=== PATIENT | female | born 1965 | race Two or more races ===

== ENCOUNTER 2018-12-15 12:57 | Emergency (ER) | payer MEDICAID, OTHER ==
[~2018-12-15] VITALS: Ht 154.9 cm; Wt 70.3 kg
[2018-12-15 15:35] VITALS: BP 152/82
== END 2018-12-15 15:40 | disposition home or self-care (01) ==
LOC: ER 13:04
DX: J40 Bronchitis, not specified as acute or chronic (principal)

== ENCOUNTER 2022-01-01 11:07 | Inpatient (IN) | payer MEDICAID ==
[~2022-01-01] VITALS: Ht 154.9 cm; Wt 74.4 kg
[2022-01-01] MEDS ORDERED: ONDANSETRON HCL 4 MG/2 ML VIAL IV ONE (11:30)
[2022-01-01] MEDS ORDERED: SODIUM CHLORIDE 0.9% 1,000 ML IVB ONE (11:30)
[2022-01-01 12:53] LABS: Basophils # (auto) 0 10 ^3/uL (0-0.2); Basophils % (auto) 0.3 % (0.0-2.0); Eosinophils # (auto) 0.1 10 ^3/uL (0-0.8); Eosinophils % (auto) 0.8 % (0.0-7.0); Hematocrit 46.1 % (36.0-46.0); Lymphocytes % (auto) 7.1 % (10.0-50.0); Mean Corpuscular Hemoglobin 31.9 pg (28.0-32.0); Mean Corpuscular Hgb Conc. 34.7 g/dL (32.0-36.0); Monocytes # (auto) 0.6 10 ^3/uL (0-1.3); Monocytes % (auto) 3.9 % (0.0-12.0); Neutrophils # (auto) 12.6 10 ^3/uL (1.6-8.6); Neutrophils % (auto) 87.9 % (37.0-80.0); Red Blood Cells 5.01 10^6/uL (4.0-5.20); Red Cell Distribution Width 13.1 % (11.8-14.3); White Blood Cell 14.3 10^3/uL (4.4-10.8)
[2022-01-01 13:01] LABS: Albumin 4.4 g/dL (3.4-5.0); Calcium 9.8 mg/dL (8.5-10.1); Potassium 4.3 mmol/L (3.5-5.1)
[2022-01-01 13:08] LABS: Bilirubin, Total 0.8 mg/dL (0.2-1.0); Total Protein 8.3 g/dL (6.4-8.2)
[2022-01-01 15:46] LABS: BUN/Creatinine Ratio 12.9
[2022-01-01] MEDS ORDERED: MORPHINE SULFATE INJECTION 2 MG/ML SYRG IV PRN ×2 (16:15)
[2022-01-01] MEDS ORDERED: DEXTROSE (50%) 50ML SYRG IV PRN (16:15)
[2022-01-01] MEDS ORDERED: NITROGLYCERIN 0.4 MG SL TAB SL PRN (16:15)
[2022-01-01 18:50] LABS: Urine Bacteria NONE SEEN /hpf (None Seen); Urine Blood Negative /uL (Negative); Urine Specific Gravity 1.019 (1.001-1.035); Urine WBC 1 /hpf (0 - 5)
[2022-01-01] MEDS: ACCU-CHEK COMFORT CURVE STRIP VI SCH ×2 (22:55→22:59)
[2022-01-01] MEDS: InsuLIN REG 1unit/0.01ml Soln (100units/ml) SC SCH ×2 (22:56→22:59)
[2022-01-01] MEDS ORDERED: MORPHINE SULFATE 4 MG/ML SYR/VIAL ONE (23:04)
[2022-01-02] VITALS (7 sets, daily range): BP systolic 112–139; BP diastolic 61–77
[2022-01-02 01:58] LABS: INR 1.16 (0.9-1.15); Partial Thromboplastin Time 25.3 sec (23.6-33.0)
[2022-01-02 02:18] LABS: Magnesium 2.2 mg/dL (1.6-2.6)
[2022-01-02] MEDS ORDERED: MULTIPLE VITAMINS W/ MINERALS TAB PO ONE (02:30)
[2022-01-02] MEDS ORDERED: hydrALAZINE HCL 20 MG/ML VL IV PRN (02:30)
[2022-01-02] MEDS ORDERED: ONDANSETRON HCL 4 MG/2 ML VIAL IV PRN (02:30)
[2022-01-02] MEDS: LACTATED RINGER'S 1,000 ML IV SCH ×2 (02:30→18:32)
[2022-01-02] MEDS ORDERED: HYDROcodone-ACET 5/325MG TAB PO ONE (02:30)
[2022-01-02] MEDS ORDERED: FAMOTIDINE (10MG/ML) 2ML VL IV ONE (02:30)
[2022-01-02] MEDS ORDERED: MEROPENEM 1GM IVPB 100 ML IV ONE (02:30)
[2022-01-02] MEDS ORDERED: LACTULOSE 20Gm/30ML SOLN PO PRN (02:30)
[2022-01-02] MEDS ORDERED: LORazepam 0.5 MG TAB PO PRN (02:30)
[2022-01-02] MEDS ORDERED: LACTATED RINGER'S 1,000 ML IV ONE (02:30)
[2022-01-02] MEDS ORDERED: DOCUSATE SOD 100 MG CAP PO PRN (02:30)
[2022-01-02] MEDS ORDERED: HYDROcodone-ACET 5/325MG TAB PO PRN (02:30)
[2022-01-02] MEDS ORDERED: FOLIC ACID 1 MG TAB PO ONE (02:30)
[2022-01-02] MEDS ORDERED: MORPHINE SULFATE INJECTION 2 MG/ML SYRG IV PRN (02:30)
[2022-01-02] MEDS ORDERED: IPRATROPIUM BROM 0.5 MG/2.5ML INH SOL NEB ONE (02:30)
[2022-01-02 02:36] LABS: Phosphorus 2.8 mg/dL (2.5-4.90)
[2022-01-02] MEDS ORDERED: METF-370 PO (03:09)
[2022-01-02] MEDS ORDERED: ATOR40TA52 PO (03:09)
[2022-01-02] MEDS ORDERED: GLIP5TAB12 PO (03:09)
[2022-01-02] MEDS ORDERED: IPRATROPIUM BROM 0.5 MG/2.5ML INH SOL NEB SCH (06:00)
[2022-01-02 06:11] LABS: Basophils # (auto) 0 10 ^3/uL (0-0.2); Basophils % (auto) 0.6 % (0.0-2.0); Eosinophils # (auto) 0 10 ^3/uL (0-0.8); Hematocrit 39.8 % (36.0-46.0); Hemoglobin 14.1 g/dL (12.2-16.2); Lymphocytes # (auto) 0.9 10 ^3/uL (0.4-5.4); Lymphocytes % (auto) 11.1 % (10.0-50.0); Mean Corpuscular Hemoglobin 32.6 pg (28.0-32.0); Mean Corpuscular Hgb Conc. 35.5 g/dL (32.0-36.0); Mean Corpuscular Volume 91.8 fL (80.0-100.0); Monocytes # (auto) 0.8 10 ^3/uL (0-1.3); Monocytes % (auto) 9.5 % (0.0-12.0); Neutrophils # (auto) 6.4 10 ^3/uL (1.6-8.6); Neutrophils % (auto) 78.8 % (37.0-80.0); Nucleated Red Blood Cells % 0.1 %; Red Blood Cells 4.34 10^6/uL (4.0-5.20); Red Cell Distribution Width 13.3 % (11.8-14.3); White Blood Cell 8.2 10^3/uL (4.4-10.8)
[2022-01-02] MEDS: MEROPENEM 1GM IVPB 100 ML IV SCH ×3 (06:11→22:08)
[2022-01-02] MEDS: ACCU-CHEK COMFORT CURVE STRIP VI SCH ×4 (06:22→22:08)
[2022-01-02 06:24] LABS: INR 1.16 (0.9-1.15); Partial Thromboplastin Time 25.5 sec (23.6-33.0)
[2022-01-02] MEDS: InsuLIN REG 1unit/0.01ml Soln (100units/ml) SC SCH ×4 (06:24→22:00)
[2022-01-02 08:18] LABS: Potassium 3.4 mmol/L (3.5-5.1)
[2022-01-02 08:26] LABS: Thyroid Stimulating Hormone 0.64 uIU/mL (0.358-3.74)
[2022-01-02 08:30] LABS: Albumin 3.6 g/dL (3.4-5.0); BUN/Creatinine Ratio 20.5; Bilirubin, Total 0.5 mg/dL (0.2-1.0); CRP High Sensitivity 1.6 mg/dL (< 0.3); Calcium 8.1 mg/dL (8.5-10.1); Magnesium 2.3 mg/dL (1.6-2.6); Phosphorus 2.9 mg/dL (2.5-4.90); Uric Acid 6.2 mg/dL (2.6-6.0)
[2022-01-02] MEDS ORDERED: GASTROGRAFIN 120 ML SOL ONE (08:54)
[2022-01-02] MEDS ORDERED: FAMOTIDINE (10MG/ML) 2ML VL IV SCH (10:00)
[2022-01-02] MEDS: FOLIC ACID 1 MG TAB PO SCH (10:49)
[2022-01-02] MEDS: MULTIPLE VITAMINS W/ MINERALS TAB PO SCH (10:49)
[2022-01-02] MEDS: ASPirin 81 mg TAB PO SCH (10:50)
[2022-01-02] MEDS: ENOXAPARIN SOD 40 MG/0.4 ML SYRINGE SC SCH (10:51)
[2022-01-02] MEDS ORDERED: MORPHINE SULFATE 4 MG/ML SYR/VIAL IV PRN (12:15)
[2022-01-02] MEDS: CYANOCOBALAMIN 500 MCG TAB PO SCH (12:21)
[2022-01-02] MEDS: SUCRALFATE 1 GM/10 ML ORAL SUSP PO SCH (22:09)
[2022-01-03 05:00] VITALS: BP 138/64
[2022-01-03] MEDS: MEROPENEM 1GM IVPB 100 ML IV SCH (05:30)
[2022-01-03] MEDS: LACTATED RINGER'S 1,000 ML IV SCH (05:30)
[2022-01-03] MEDS: ACCU-CHEK COMFORT CURVE STRIP VI SCH ×2 (06:14→11:30)
[2022-01-03] MEDS: SUCRALFATE 1 GM/10 ML ORAL SUSP PO SCH ×2 (06:14→10:53)
[2022-01-03] MEDS: InsuLIN REG 1unit/0.01ml Soln (100units/ml) SC SCH ×2 (06:16→11:30)
[2022-01-03 06:34] LABS: Basophils # (auto) 0 10 ^3/uL (0-0.2); Basophils % (auto) 0.6 % (0.0-2.0); Eosinophils # (auto) 0 10 ^3/uL (0-0.8); Eosinophils % (auto) 0.1 % (0.0-7.0); Hematocrit 37.1 % (36.0-46.0); Lymphocytes # (auto) 1.1 10 ^3/uL (0.4-5.4); Lymphocytes % (auto) 23.1 % (10.0-50.0); Mean Corpuscular Hgb Conc. 34.9 g/dL (32.0-36.0); Mean Corpuscular Volume 91.6 fL (80.0-100.0); Monocytes # (auto) 0.4 10 ^3/uL (0-1.3); Monocytes % (auto) 9.1 % (0.0-12.0); Neutrophils # (auto) 3.2 10 ^3/uL (1.6-8.6); Neutrophils % (auto) 67.1 % (37.0-80.0); Nucleated Red Blood Cells % 0.2 %; Red Blood Cells 4.05 10^6/uL (4.0-5.20); Red Cell Distribution Width 12.9 % (11.8-14.3); White Blood Cell 4.8 10^3/uL (4.4-10.8)
[2022-01-03 06:56] LABS: Calcium 8.1 mg/dL (8.5-10.1); Potassium 3.2 mmol/L (3.5-5.1)
[2022-01-03 06:59] LABS: BUN/Creatinine Ratio 10.6
[2022-01-03 07:02] LABS: Bilirubin, Total 0.4 mg/dL (0.2-1.0)
[2022-01-03 09:00] VITALS: BP 124/77
[2022-01-03] MEDS ORDERED: METR500T PO (09:35)
[2022-01-03] MEDS ORDERED: SUCR1TAB22 OR (09:35)
[2022-01-03] MEDS ORDERED: LEVO500T31 PO (09:35)
[2022-01-03] MEDS ORDERED: PANT40T PO (09:35)
[2022-01-03] MEDS ORDERED: POTASSIUM CHL 20 Meq TABLET PO ONE (09:45)
[2022-01-03] MEDS ORDERED: PANTOPRAZOLE 40 MG TAB PO SCH (10:00)
[2022-01-03] MEDS ORDERED: levoFLOXacin 500MG 100 ML IV SCH (10:00)
[2022-01-03] MEDS: MULTIPLE VITAMINS W/ MINERALS TAB PO SCH (10:50)
[2022-01-03] MEDS: CYANOCOBALAMIN 500 MCG TAB PO SCH (10:50)
[2022-01-03] MEDS: FOLIC ACID 1 MG TAB PO SCH (10:50)
[2022-01-03] MEDS: ASPirin 81 mg TAB PO SCH (10:53)
[2022-01-03] MEDS: ENOXAPARIN SOD 40 MG/0.4 ML SYRINGE SC SCH (10:53)
[2022-01-03 12:43] VITALS: BP 124/77
[2022-01-03 13:22] VITALS: BP 121/74
[2022-01-04 12:27] LABS: Hepatitis A Ab IgM Negative; Hepatitis B Core IgM Negative; Hepatitis C Antibody Negative (Negative)
== END 2022-01-03 15:53 | disposition home or self-care (01) | DRG 720 ==
LOC: ER 11:07 → OVERFLOW 16:09 → EAST 23:40
PROVIDERS: ADMIT Hospitalist; ATTEND Family Medicine
DX: A41.9 Sepsis, unspecified organism (principal); K85.80 Other acute pancreatitis without necrosis or infection; D89.89 Other specified disorders involving the immune mechanism, not elsewhere classified; C54.1 Malignant neoplasm of endometrium; A08.4 Viral intestinal infection, unspecified; B19.9 Unspecified viral hepatitis without hepatic coma; E66.01 Morbid (severe) obesity due to excess calories; E78.00 Pure hypercholesterolemia, unspecified; E78.5 Hyperlipidemia, unspecified; E11.9 Type 2 diabetes mellitus without complications; Z20.822 Contact with and (suspected) exposure to COVID-19; R79.89 Other specified abnormal findings of blood chemistry; I10 Essential (primary) hypertension; K86.1 Other chronic pancreatitis; Z85.42 Personal history of malignant neoplasm of other parts of uterus; Z86.718 Personal history of other venous thrombosis and embolism; Z90.710 Acquired absence of both cervix and uterus; Z90.722 Acquired absence of ovaries, bilateral; Z68.31 Body mass index [BMI] 31.0-31.9, adult
CPT/HCPCS: 36415; 74176; 74250; 76705; 80053; 80061; 80074; 81001; 82105; 82150; 82378; 82550; 82728; 82962; 83036; 83615; 83690; 83735; 83880; 84100; 84443; 84484; 84550; 85025; 85379; 85610; 85652; 85730; 86038; 86141; 86301; 87040; 87086; 93005; 93925; 93970; 96361; 96374; G0378; J1815; J1956; J2185; J2405; J3490